=== PATIENT | female | born 1975 | race Caucasian/White ===

== ENCOUNTER 2016-12-03 16:24 | Inpatient (IN) | payer OTHER ==
[~2016-12-03] VITALS: Ht 165.1 cm; Wt 67.8 kg
[2016-12-03 21:41] LABS: PLATELET COUNT 224 x10^3mcL (130-400)
[2016-12-03 21:44] LABS: CALCIUM 8.4 mg/dL (8.5-10.1); CARBON DIOXIDE 28.1 mmol/L (21-32); CHLORIDE SERUM 104 mmol/L (98-107); CREATININE SERUM 0.6 mg/dL (0.6-1.0); GFR1 > 60 mL/min; GLUCOSE SERUM 87 mg/dL (74-106); POTASSIUM SERUM 3.3 mmol/L (3.5-5.1); SODIUM SERUM 138 mmol/L (136-145)
[2016-12-03 21:45] LABS: RED CELL DISTRIBUTION WIDTH 18.6 % (11.5-14.5)
[2016-12-03 21:49] LABS: ALKALINE PHOSPHATASE 59 U/L (46-116); ALT/SGPT 17 U/L (14-59); AMYLASE 47 U/L (25-115); AST/SGOT 14 U/L (15-37); BILIRUBIN TOTAL 0.16 mg/dL (0.20-1.00); LIPASE 169 IU/L (73-393)
[2016-12-03 22:08] LABS: BAND NEUTROPHIL 0 % (0-10); BASOPHIL 0 % (0-2); MONOCYTE 4 % (0-7); SEGMENTED NEUTROPHILS 37 % (37-75)
[2016-12-03 22:10] LABS: PLATELET MORPHOLOGY LARGE PLATELET SEEN; rbc morphology (normal/abnorm) ABNORMAL (NORMAL)
[2016-12-03 23:48] LABS: UA SPECIFIC GRAVITY <=1.005 (1.005-1.035); microscopic required? YES; urine erythrocyte 3+ (NEGATIVE)
[2016-12-04] VITALS (9 sets, daily range): BP systolic 90–108; BP diastolic 50–72
[2016-12-04 00:09] LABS: AMPHETAMINE QUAL UR NONE DETECTED (NEG <=1000)
[2016-12-04 01:28] LABS: T3 TOTAL 1.29 ng/mL
[2016-12-04 01:43] LABS: FREE T4 1.1 ng/dL (0.76-1.46); T4(THYROXINE) 11.6 ug/dL (4.7-13.3)
[2016-12-04 01:50] LABS: RED BLOOD CELLS 3.58 M/mm3 (4.10-5.10)
[2016-12-04 01:51] LABS: IRON 10 ug/dL (50-170); TOTAL IRON BINDING CAPACITY 513 ug/dL (250-450)
[2016-12-04 02:00] LABS: CHOLESTEROL/HDL RATIO 2.8
[2016-12-04 06:03] LABS: PLATELET COUNT 192 x10^3mcL (130-400)
[2016-12-04 06:34] LABS: CALCIUM 8.3 mg/dL (8.5-10.1); CARBON DIOXIDE 26.8 mmol/L (21-32); CHLORIDE SERUM 102 mmol/L (98-107); CREATININE SERUM 0.6 mg/dL (0.6-1.0); GFR1 > 60 mL/min; GLUCOSE SERUM 85 mg/dL (74-106); MAGNESIUM 1.9 mg/dL (1.8-2.4); PHOSPHOROUS 2.7 mg/dL (2.5-4.9); POTASSIUM SERUM 3.6 mmol/L (3.5-5.1); SODIUM SERUM 139 mmol/L (136-145)
[2016-12-04 07:40] LABS: RED CELL DISTRIBUTION WIDTH 18.9 % (11.5-14.5)
[2016-12-04 11:21] LABS: BAND NEUTROPHIL 8 % (0-10); BASOPHIL 0 % (0-2); MONOCYTE 11 % (0-7); SEGMENTED NEUTROPHILS 67 % (37-75)
[2016-12-04 11:24] LABS: PLATELET MORPHOLOGY LARGE PLATELET SEEN; rbc morphology (normal/abnorm) ABNORMAL (NORMAL)
[2016-12-04 14:29] LABS: PLATELET COUNT 188 x10^3mcL (130-400)
[2016-12-04 14:34] LABS: RED CELL DISTRIBUTION WIDTH 21.4 % (11.5-14.5)
[2016-12-04 14:39] LABS: ovalocyte/elliptocyte 2+; rbc morphology (normal/abnorm) ABNORMAL (NORMAL)
[2016-12-04 21:53] LABS: PLATELET COUNT 207 x10^3mcL (130-400)
[2016-12-04 21:54] LABS: RED CELL DISTRIBUTION WIDTH 23.9 % (11.5-14.5)
[2016-12-04 22:16] LABS: BAND NEUTROPHIL 1 % (0-10); BASOPHIL 0 % (0-2); METAMYELOCTE 1 % (0-2); MONOCYTE 7 % (0-7); SEGMENTED NEUTROPHILS 54 % (37-75); rbc morphology (normal/abnorm) ABNORMAL (NORMAL)
[2016-12-04 22:17] LABS: ovalocyte/elliptocyte 1+
[2016-12-05 06:00] VITALS: BP 103/57
[2016-12-05 09:20] VITALS: BP 107/56
[2016-12-05 13:45] VITALS: BP 104/57
[2016-12-05] MEDS ORDERED: FER300 PO (14:25)
[2016-12-05] MEDS ORDERED: VITC PO (14:26)
[2016-12-05] MEDS ORDERED: COLACE100 MG PO (14:34)
[2016-12-05] MEDS ORDERED: MAC100 PO (14:37)
[2016-12-05 14:47] VITALS: BP 104/57
== END 2016-12-05 17:30 | disposition home or self-care (01) | DRG 517 ==
LOC: ED 16:24 → DU 22:54
PROVIDERS: Emergency Medicine; Family Medicine; Obstetrics & Gynecology; ADMIT Family Medicine
PROC: 0UDB7ZZ Extraction of Endometrium, Via Natural or Artificial Opening (ICD-10-PCS; 2016-12-05)
PROC: 30233N1 Transfusion of Nonautologous Red Blood Cells into Peripheral Vein, Percutaneous Approach (ICD-10-PCS; principal; 2016-12-05 12:30)
DX: N93.8 Other specified abnormal uterine and vaginal bleeding (principal); N17.0 Acute kidney failure with tubular necrosis; D50.0 Iron deficiency anemia secondary to blood loss (chronic); N39.0 Urinary tract infection, site not specified; E87.6 Hypokalemia; E44.0 Moderate protein-calorie malnutrition; K21.9 Gastro-esophageal reflux disease without esophagitis; Z68.24 Body mass index [BMI] 24.0-24.9, adult; E78.5 Hyperlipidemia, unspecified
CPT/HCPCS: 83880; 84439; C1758; C9113; G0480; J0696; J2250; J3010; J3490; J7040; P9016; Q0092; Q0163